=== PATIENT | female | born 1945 ===

== ENCOUNTER 2017-09-13 16:40 | Emergency (ER) | payer MEDICARE, BC ==
[2017-09-13 16:41] VITALS: PULSE 110; BMI 44.5
[2017-09-13 17:15] VITALS: RESP 18; TEMP 98.7; O2SAT 96
--- NOTE | 2017-09-13 17:34 | ED PDOC ---
Arrival/HPI - General Chief Complaint: Abnormal Skin Integrity Time Seen by Provider: 09/13/17 17:27 Historian: Patient, Family - History of Present Illness Narrative History of Present Illness (Text): 09/13/17 17:53 Pt is a 72 year old female with asthma and DMII who presents to the ED for an itchy and blotchy body rash all over her body for the last 6 days. Pt normally reside in [place], and was there at the start of the rash that began on her stomach, chest, arms and legs that appeared to be dry skin but would not clear up with lotion. Decided to try Benadryl and Caladryl spray but no change. called her doctor who prescribed Loratadine; pt took one pill, felt no change and stopped. Pt's PMD when visiting in [place] is Dr. Kc who could not be reached today. Rash disturbs patient's sleep and is now causing skin breakdown especially on the legs. Denies headache, chest pain, sob, dysphasia, recent illness, new soaps, foods, fabric; reports having close contact to a cat that has caused asthma exacerbation in the past. 09/14/17 21:36 Time/Duration: < week Symptom Onset: Gradual Symptom Course: Unchanged, Worsening Severity Level: 3, Moderate Activities at Onset: Rest, Light, Sleeping Context: Home Past Medical History - Provider Review Nursing Documentation Reviewed: Yes - Travel History Have you recently traveled outside [place] w/in the past 3 mons?: No - Infectious Disease Hx of Infectious Diseases: None - Reproductive Menopause: Yes - Cardiac Hx Cardiac Disorders: Yes Hx Cardiac Arrhythmia: Yes Hx Congestive Heart Failure: Yes Hx Heart Murmur: Yes Hx Hypertension: Yes Hx Peripheral Edema: Yes (hands and feet) - Pulmonary Hx Respiratory Disorders: Yes Hx Asthma: Yes Hx Sleep Apnea: Yes (BIPAp) - Neurological Hx Neurological Disorder: No Hx Alzheimer's Disease: No HX Cerebrovascular Accident: No Hx Dementia: No Hx Dizziness: No Hx Meningitis: No Hx Migraine: No Hx Parkinson's Disease: No Hx Seizures: No Hx Transient Ischemic Attacks (TIA): No - HEENT Hx HEENT Disorder: No (WEARS RX GLASSES) Hx Blind: No Hx Cataracts: No Hx Deafness: No Hx Difficulty Chewing: No Hx Epistaxis: No Hx Glaucoma: No Hx Macular Degeneration: No - Renal Hx Renal Disorder: No Hx Dialysis: No Hx Kidney Stones: No Hx Neurogenic Bladder: No Hx Pyelonephritis: No Hx Renal Cancer: No Hx Renal Failure: No - Endocrine/Metabolic Hx Endocrine Disorders: Yes Hx Adrenal Cancer: No Hx Diabetes Insipidus: No Hx Diabetes Mellitus Type 1: No Hx Diabetes Mellitus Type 2: Yes Hx Hypothyroidism: No Hx Systemic Lupus Erythematosus: No - Hematological/Oncological Hx Blood Disorders: No Hx AIDS: No Hx Anemia: No Hx Cancer: No Hx Chemotherapy: No Hx Cirrhosis: No Hx Hemophilia: No Hx Hepatitis A: No Hx Hepatitis B: No Hx Hepatitis C: No Hx Metastasis: No Hx Shingles: No Hx Sickle Cell Disease: No Hx Unexplained Bleeding: No - Integumentary Hx Dermatological Disorder: No (GENERALIZED EDEMA) Hx Basal Cell Carcinoma: No Hx Eczema: No Hx Melanoma: No Hx Psoriasis: No Hx Squamous Cell Carcinoma: No Other/Comment: ble and hands +1 edema, brown dry discolored skin to lle a result of pt back in 2004 developed a sudden high fever and generalized body pain, pt was in the hospital and home on iv abx for 6 months, cause, 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 - Musculoskeletal/Rheumatological Hx Falls: Yes (past) - Gastrointestinal Hx Gastrointestinal Disorders: No Hx Colostomy: No Hx Crohn's Disease: No Hx Diverticulitis: No Hx Gall Bladder Disease: No Hx Gastroesophageal Reflux: No Hx Gastrointestinal Ulcer: No Hx Ileostomy: No Hx Liver Failure: No Hx Pancreatitis: No HX Swallowing Problems: No - Genitourinary/Gynecological Hx Genitourinary Disorders: No (TUBAL LIGATION) Hx Hematuria: No Hx Incontinence: No Hx Prostate Problems: No Hx Sexually Transmitted Diseases: No Hx Urinary Tract Infection: No - Psychiatric Hx Psychophysiologic Disorder: No Hx Anxiety: No Hx Bipolar Disorder: No Hx Depression: No Hx Emotional Abuse: No Hx Hallucinations: No Hx Panic Disorder: No Hx Post Traumatic Stress Disorder: No Hx Psychosis: No Hx Physical Abuse: No Hx Schizophrenia: No Hx Sexual Abuse: No Hx Substance Use: No - Surgical History Hx Amputation: No Hx Cholecystectomy: No Hx Gastric Bypass Surgery: No Hx Hysterectomy: No Hx Joint Replacement: No Hx Kidney Transplant: No Hx Liver Transplant: No Hx Mastectomy: No Hx Open Heart Surgery: No Hx Orthopedic Surgery: No Hx Splenectomy: No Hx Valve Replacement: No Other/Comment: benign tumor removed from back, tonsillectomy, umbilical hernia sx - Anesthesia Hx Anesthesia: No - Suicidal Assessment Feels Threatened In Home Enviroment: No Family/Social History - Physician Review Nursing Documentation Reviewed: Yes Family/Social History: Unknown Family HX Smoking Status: Never Smoked Hx Alcohol Use: No Hx Substance Use: No Hx Substance Use Treatment: No Allergies/Home Meds Allergies/Adverse Reactions: Allergies No Known Allergies Allergy (Verified 09/13/17 17:15) Home Medications: Home Meds Medication Instructions Recorded Confirmed Amiodarone [Cordarone] 200 mg PO DAILY 08/12/14 09/13/17 Dabigatran [Pradaxa] 150 mg PO BID 08/12/14 09/13/17 Furosemide [Lasix] 40 mg PO DAILY 08/12/14 09/13/17 Losartan [Cozaar] 50 mg PO DAILY 08/12/14 09/13/17 Carvedilol [Coreg] 12.5 mg PO BID 06/13/16 09/13/17 Potassium Chloride [Klor-Con 10] 1 meq PO DAILY 06/13/16 09/13/17 Albuterol HFA [Ventolin HFA 90 0.09 mg IH PRN PRN 09/13/17 09/13/17 mcg/actuation (8 g)] Atorvastatin [Lipitor] 40 mg PO DAILY 09/13/17 09/13/17 Budesonide/Formoterol Fumarate 0 aer IH 09/13/17 [Symbicort] Review of Systems - Review of Systems Constitutional: Normal Eyes: Normal ENT: Normal Respiratory: Normal Cardiovascular: Normal Gastrointestinal: Normal Genitourinary Female: Normal Musculoskeletal: Normal Skin: Rash (diffuse, humble, macular rash with excoriations all over the body) Neurological: Normal Endocrine: Normal Hemo/Lymphatic: Normal Psychiatric: Normal Physical Exam Vital Signs Reviewed: Yes Vital Signs Temp Pulse Resp BP Pulse Ox 09/13/17 20:22 55 L 18 137/70 96 09/13/17 17:11 98.7 F 56 L 18 148/64 96 Temperature: Afebrile Blood Pressure: Normal Pulse: Regular Respiratory Rate: Normal Appearance: Positive for: Well-Appearing, Non-Toxic, Comfortable Pain Distress: Other (pruritic) Mental Status: Positive for: Alert and Oriented X 3 - Systems Exam Head: Present: Atraumatic, Normocephalic Pupils: Present: PERRL Extroacular Muscles: Present: EOMI Conjunctiva: Present: Normal Mouth: Present: Moist Mucous Membranes Neck: Present: Normal Range of Motion Respiratory/Chest: Present: Clear to Auscultation, Good Air Exchange. No: Respiratory Distress, Accessory Muscle Use Cardiovascular: Present: Regular Rate and Rhythm, Normal S1, S2. No: Murmurs Abdomen: Present: Normal Bowel Sounds. No: Tenderness, Distention, Peritoneal Signs Breast/Axillary: No: Axillary Lymphad, Discoloration, Erythema, Fluctuance, Masses, Nipple Discharge, Other, Swelling, Symmetrical, Tender to Palpation Back: Present: Normal Inspection Upper Extremity: Present: Normal Inspection, Normal ROM, NORMAL PULSES, Erythema (diffuse, humble, macular rash with excoriations), Neurovascularly Intact, Capillary Refill < 2s. No: Cyanosis, Edema Lower Extremity: Present: Normal Inspection, NORMAL PULSES, Normal ROM, Erythema (diffuse, humble, macular rash with excoriations, left calf and ankle erythema w plaques), Neurovascularly Intact, Capillary Refill < 2 s. No: Edema Neurological: Present: GCS=15, CN II-XII Intact, Speech Normal, Motor Func Grossly Intact, Normal Sensory Function, Norm Deep Tendon Reflexes, Gait Normal Skin: Present: Warm, Dry, Rashes (diffuse, humble, macular rash with excoriations on UE/LE, neck, back and abdomen), Normal Color Lymphatic: No: Cervical Adenopathy, Axillary Adenopathy, Inguinal Adenopathy, Other Psychiatric: Present: Alert, Oriented x 3, Normal Insight, Normal Concentration Medical Decision Making ED Course and Treatment: 09/13/17 17:59 Impression Pt is a 72 year old female with asthma and DMII presents to the ED for an itchy and blotchy macular body rash for the last 6 days. One exam, macular rash with excoriations and plaques on extremities, abdomen, groin, back, neck and face; hands and feet, and spared; intertrigo affected but spared under the breasts; no signs of infection appreciated Plan labs assess and dispo Progress Note MedroDose chip for home Janumet Rx as pt is currently without her medication while away from home; does not monitor her glucose; Serum glucose 254 Pt heading back to [place] in ~7days Discussed side effects of medication and potential spike in blood glucose VSS and pt agreed to follow up with Dr. Kc in the next day 09/13/17 18:59 - Lab Interpretations Lab Results: 09/13/17 19:05 09/13/17 19:05 Lab Results 09/13/17 19:05: Sodium 142, Potassium 4.2, Chloride 100, Carbon Dioxide 33, Anion Gap 13, BUN 19, Creatinine 0.9, Est GFR ( Amer) > 60, Est GFR (Non- Af Amer) > 60, Random Glucose 254 H, Calcium 9.6, Total Bilirubin 0.4, AST 23, ALT 31, Alkaline Phosphatase 100, Total Protein 7.0, Albumin 3.7, Globulin 3.3, Albumin/Globulin Ratio 1.1 09/13/17 19:05: WBC 7.7, RBC 4.38, Hgb 13.7, Hct 41.7, MCV 95.2, MCH 31.3, MCHC 32.9, RDW 13.7, Plt Count 187, MPV 11.6 H, Gran % 54.3, Lymph % (Auto) 29.6, [place] % (Auto) 10.3 H, Eos % (Auto) 5.5 H, Baso % (Auto) 0.3, Gran # 4.17, Lymph # (Auto) 2.3, [place] # (Auto) 0.8 H, Eos # (Auto) 0.4, Baso # (Auto) 0.02 Disposition/Present on Arrival - Present on Arrival Any Indicators Present on Arrival: Yes History of DVT/PE: No History of Uncontrolled Diabetes: No Urinary Catheter: No History of Decub. Ulcer: No History Surgical Site Infection Following: None - Disposition Have Diagnosis and Disposition been Completed?: Yes Diagnosis: Allergic dermatitis, Diabetes Disposition: HOME/ ROUTINE Disposition Time: 19:47 Patient Plan: Discharge Condition: GOOD Discharge Instructions (ExitCare): Contact Dermatitis (DC), Blood Glucose Monitoring Additional Instructions: Dear Alisha Please take the medication as prescribed and follow up with elizabeth Kc or your doctor in [place]. Should you feel a worsening of symptoms in the next 24 hrs, return to the ER. Be Well Prescriptions: Methylprednisolone [Medrol Dose Pack (21 tabs)] 4 mg PO TID #21 mg Sitagliptin Phos/Metformin HCl [Janumet 50-500 mg Tablet] 1 each PO DAILY #7 tablet Referrals: [facility], [Non-Staff] - Follow up with primary Forms: [employer] ([place]ian)
[2017-09-13 19:23] LABS: BASO # 0.02 K/mm3 (0.0-2.0); BASO % 0.3 % (0.0-3.0); EOS # 0.4 (0.0-0.7); EOS % 5.5 % (1.5-5.0); GRAN # 4.17 (1.4-6.5); GRAN % 54.3 % (50.0-68.0); HEMOGLOBIN 13.7 g/dL (12.0-16.0); LYMPH # 2.3 (1.2-3.4); LYMPH % 29.6 % (22.0-35.0); MEAN CELL VOLUME 95.2 fl (80.0-105.0); MEAN CORPUSCULAR HEMOGLOBIN 31.3 pg (25.0-35.0); MEAN CORPUSCULAR HGB CONC 32.9 g/dl (31.0-37.0); MEAN PLATELET VOLUME 11.6 fl (7.0-11.0); MONO # 0.8 (0.1-0.6); MONO % 10.3 % (1.0-6.0); RBC 4.38 10^6/uL (3.5-6.1); RED CELL DISTRIBUTION WIDTH 13.7 % (11.5-14.5); WHITE BLOOD COUNT 7.7 10^3/ul (4.5-11.0)
[2017-09-13 19:28] LABS: ALB/GLOB RATIO 1.1 (1.1-1.8); ALBUMIN 3.7 g/dL (3.0-4.8); ALT/SGPT 31 U/L (7-56); AST/SGOT 23 U/L (14-36); BLOOD UREA NITROGEN 19 mg/dL (7-21); CALCIUM 9.6 mg/dL (8.4-10.5); GFR AFRICAN-AMERICAN > 60; GFR NON-AFRICAN AMERICAN > 60
[2017-09-13 20:23] VITALS: BP 137/70; PULSE 55
== END 2017-09-13 20:24 | disposition home or self-care (01) ==
LOC: ED 16:40
DX: L23.9 Allergic contact dermatitis, unspecified cause (principal); E11.9 Type 2 diabetes mellitus without complications; I50.9 Heart failure, unspecified; I10 Essential (primary) hypertension